=== PATIENT | male | born 1955 | race Caucasian/White ===

== ENCOUNTER 2019-11-25 13:38 | Emergency (ER) | payer MEDICARE ==
[~2019-11-25] VITALS: Ht 177.8 cm; Wt 72.7 kg
[~2019-11-25 13:38] MED LIST: ACET325T26 PO; CEFT2FRO2 INJ; CHLO25TA PO; Calcium Carbonate PO; LISI40TA PO; METR500T PO
[2019-11-25 13:42] VITALS: BP 113/63
--- NOTE | 2019-11-25 14:03 | NUR ---
task RN note: pt presents to ED stating "they kicked me out [of rehab] and I had no where to go." pt was admitted to this hospital 11/03/19 for LLE cellulitis and discharged to SNF. pt is a poor historian. pt arrived to ED with 18g PIV in place to left forearm, no s/sx phlebitis/cellulitis to this site. bp and spo2 monitors in place, call light in reach. PHILIP Castaneda at bedside for initial assessment.
--- NOTE | 2019-11-25 14:13 | NUR ---
When patient asked to clarify time and facility of left forearm 22 gauge piv placement. Patient responded "You guys put it in 2 days ago." when re-directed that he was last seen here 2 weeks ago patient responed "Well maybe the rehab place did it I don't know." After discussion with provider-bilateral lower leg cellulitus looks to be improving well. To remove PIV and discharge Piv removed with tip intact
== END 2019-11-25 14:39 | disposition home or self-care (01) ==
LOC: ED 14:05
DX: L03.116 Cellulitis of left lower limb (principal); M79.672 Pain in left foot
CPT/HCPCS: 99281

== ENCOUNTER 2020-01-10 16:32 | Emergency (ER) | payer MEDICARE ==
[~2020-01-10] VITALS: Ht 180.3 cm; Wt 73.0 kg
--- NOTE | 2020-01-10 16:38 | NUR ---
THIS IS A 64 YO M BIB EMS AFTER LOWERING SELF TO GROUND. PT REPORTS THAT HE THOUGHT HIS LEGS WERE GOING TO GIVE OUT. WHILE WAITING FOR [facility] PT HAD EPISODE OF BOWEL INCONTINENCE. PT TACHYCARDIC, OTHER VS WDL. CONNECTED TO MONITORING, KD LEARY AT BEDSIDE. RESP EVEN AND UNLABORED, ZEENAT.
--- NOTE | 2020-01-10 16:40 | NUR ---
PT PROVIDED W/ WASHCLOTHES AND SOAP.
[2020-01-10] MEDS ORDERED: CYCLOBENZAPRINE 10 MG TABLET ONE (17:00)
[2020-01-10] MEDS ORDERED: CYCLOBENZAPRINE 10 MG TABLET PO ONE (17:00)
[2020-01-10] MEDS ORDERED: KETOROLAC 30 MG/1 ML ONE (17:00)
[2020-01-10] MEDS ORDERED: KETOROLAC 30 MG/1 ML IM ONE (17:00)
--- NOTE | 2020-01-10 17:08 | NUR ---
PT REFUSING LABS AND XRAY.
--- NOTE | 2020-01-10 17:46 | NUR ---
PT STATES THAT HE WANTS TO LEAVE. PT AMBULATED TO WHEELCHAIR, WHEELED TO LOBBY. PROVIDED W/ TAXI VOUCHER PER PT REQUEST. RESP EVEN AND UNLABORED, ZEENAT.
== END 2020-01-10 17:48 | disposition home or self-care (01) ==
LOC: ED 17:05
DX: S39.012A Strain of muscle, fascia and tendon of lower back, initial encounter (principal); M54.16 Radiculopathy, lumbar region; I10 Essential (primary) hypertension; Z87.891 Personal history of nicotine dependence; X58.XXXA Exposure to other specified factors, initial encounter; Y93.89 Activity, other specified; Y92.89 Other specified places as the place of occurrence of the external cause; Y99.8 Other external cause status
CPT/HCPCS: 99283

== ENCOUNTER 2020-01-29 20:20 | Emergency (ER) | payer MEDICARE ==
[~2020-01-29] VITALS: Ht 180.3 cm; Wt 72.0 kg
--- NOTE | 2020-01-29 20:32 | NUR ---
jimbo from [facility] for c/o head pain s/p GLF x "several hours ago." EMS reports they were initially called following the fall and pt did not want to be brought to the hospital, but now at this time would like to be seen for head pain and small hematoma to face. Pt states his "legs give out sometimes and this happens", denies LOC, dizziness, or neck pain
[2020-01-29] MEDS ORDERED: ACETAMINOPHEN 500 MG TABLET ONE (21:41)
[2020-01-29] MEDS ORDERED: IBUPROFEN 600 MG TABLET ONE ×2 (21:41→21:44)
[2020-01-29] MEDS ORDERED: BACITRACIN ZINC OINT 500U/GM, 0.9 GM ONE (21:42)
[2020-01-29] MEDS ORDERED: IBUPROFEN 600 MG TABLET PO ONE (22:00)
[2020-01-29] MEDS ORDERED: ACETAMINOPHEN 500 MG TABLET PO ONE (22:00)
[2020-01-29 22:07] VITALS: BP 148/89
== END 2020-01-29 22:22 | disposition home or self-care (01) ==
LOC: ED 22:14
DX: S01.111A Laceration without foreign body of right eyelid and periocular area, initial encounter (principal); R51 Headache; I10 Essential (primary) hypertension; E87.1 Hypo-osmolality and hyponatremia; Z87.891 Personal history of nicotine dependence; W01.0XXA Fall on same level from slipping, tripping and stumbling without subsequent striking against object, initial encounter; Y93.89 Activity, other specified; Y92.89 Other specified places as the place of occurrence of the external cause; Y99.8 Other external cause status
CPT/HCPCS: 12011; 99283

== ENCOUNTER 2020-02-16 09:17 | Emergency (ER) | payer MEDICARE ==
[~2020-02-16] VITALS: Ht 182.9 cm; Wt 72.0 kg
[2020-02-16 09:30] VITALS: BP 166/87
[2020-02-16] MEDS ORDERED: KETOROLAC 30 MG/1 ML IM ONE ×2 (09:30)
[2020-02-16] MEDS ORDERED: DIAZEPAM 5 MG TABLET PO ONE (09:30)
--- NOTE | 2020-02-16 09:35 | NUR ---
jimbo. report received from ems. pt c/o left sided chronic neck/back pain x a few years. denies any symptoms. pt's aox4. resps even and unlabored. bed bugs found on the gurney and put into the urine cup. door closed. set up and charger notified.
[2020-02-16] MEDS ORDERED: KETOROLAC 30 MG/1 ML ONE (09:48)
[2020-02-16] MEDS ORDERED: DIAZEPAM 5 MG TABLET ONE (09:48)
--- NOTE | 2020-02-16 10:12 | NUR ---
pt medicated per emar. pt tolerated well.
--- NOTE | 2020-02-16 11:28 | NUR ---
pt sleeping in [place]. resps even and unlabored. bp/spo2 monitors in place. rails upx2.
--- NOTE | 2020-02-16 12:05 | NUR ---
urinal given per request at this time.
== END 2020-02-16 13:10 | disposition home or self-care (01) ==
LOC: ED 10:17
DX: S16.1XXA Strain of muscle, fascia and tendon at neck level, initial encounter (principal); M54.42 Lumbago with sciatica, left side; I10 Essential (primary) hypertension; X58.XXXA Exposure to other specified factors, initial encounter; Y93.89 Activity, other specified; Y92.89 Other specified places as the place of occurrence of the external cause; Y99.8 Other external cause status
CPT/HCPCS: 96372; 99283; J1885; 99284